=== PATIENT | male | born 1980 ===

== ENCOUNTER 2022-04-18 10:17 | Emergency (ER) | payer OTHER ==
[2022-04-18 12:38] LABS: BASOPHIL 0.6 % (0-2); EOSINOPHIL 0.1 % (0-5); HCT 39.3 % (42.0-52.0); HGB 13.7 g/dl (13.2-18.0); LYMPHOCYTE 9.2 % (15-48); MCH 34.8 pg (25.0-31.0); MCHC 34.9 g/dL (32.0-36.0); MCV 99.7 fL (78.0-100.0); MONOCYTE 10.9 % (0-12); NEUTROPHIL 78.9 % (41-80); NRBC 0; PLT 185 K/uL (150-400); RBC 3.94 M/uL (4.70-6.00); RDW 12.7 % (11.5-14.0); WBC 10.9 K/uL (4.0-10.5)
[2022-04-18 12:52] LABS: BUN/CREAT RATIO (CALC) 11.6 RATIO; CREATININE 0.69 mg/dL (0.67-1.17); POTASSIUM 3.5 mmol/L (3.5-5.1)
[2022-04-18 13:12] LABS: BILIRUBIN 1+ mg/dL (NEGATIVE); BLOOD NEGATIVE Ery/uL (NEGATIVE); CLARITY CLEAR (CLEAR); COLOR YELLOW (YELLOW); GLUCOSE (U) NORMAL (NORMAL); LEUKOCYTES NEGATIVE Leu/uL (NEGATIVE); NITRITE POSITIVE (NEGATIVE); PROTEIN TRACE (LOW) mg/dL (NEGATIVE); SPECIFIC GRAVITY 1.025 (1.001-1.030)
[2022-04-18 13:14] LABS: CORONAVIRUS 2019 SARS-COV-2 NEGATIVE (NEGATIVE); INFLUENZA A NAA NEGATIVE (NEGATIVE)
[2022-04-18 13:20] LABS: AMPHETAMINES NEGATIVE (NEGATIVE); BARBITURATES NEGATIVE (NEGATIVE); ECSTASY (MDMA) NEGATIVE (NEGATIVE); MARIJUANA (THC) NEGATIVE (NEGATIVE); METHADONE NEGATIVE (NEGATIVE); OPIATES NEGATIVE (NEGATIVE); OXYCODONE NEGATIVE (NEGATIVE)
[2022-04-18 13:22] LABS: BACTERIA 1+; MUCOUS MODERATE
[2022-04-18] MEDS ORDERED: BACTRIM DS TAB1 EACH PO (14:26)
[2022-04-18] MEDS ORDERED: NAPROXEN500 MG PO (14:26)
[2022-04-18] MEDS ORDERED: PREDNISONE 20MG20 MG PO (14:26)
== END 2022-04-18 15:19 | disposition home or self-care (01) ==
LOC: FER 10:17
PROVIDERS: Nurse Practitioner Family
DX: N39.0 Urinary tract infection, site not specified (principal); M25.521 Pain in right elbow; M25.522 Pain in left elbow; M25.562 Pain in left knee; F17.210 Nicotine dependence, cigarettes, uncomplicated; Z20.822 Contact with and (suspected) exposure to COVID-19; Z28.310 Unvaccinated for COVID-19
CPT/HCPCS: 36415; 80048; 80305; 81001; 84145; 84550; 85025; 86038; 86431; 87040; 87088; J1100; J1885; J7030; U0002